=== PATIENT | male | born 1980 | race Two or more races ===

== ENCOUNTER 2016-12-30 21:34 | Emergency (ER) | payer OTHER ==
[~2016-12-30] VITALS: Ht 180.3 cm; Wt 76.7 kg
[~2016-12-30 21:34] MED LIST: BENTYL20 MG PO; COLACE50 MG PO; MOBIC7.5 MG PO; MOTRIN400 MG PO
[2016-12-30 22:17] LABS: HEMATOCRIT 45.8 % (38.0-50.0); MCHC 35.2 G/DL (30.0-36.0); MCV 85.4 FL (86-99); PLATELET COUNT 303 K/uL (156-360); RBC DIS.WIDTH-CV 12.4 % (11.8-14.6); RBC DIS.WIDTH-SD 38.1 % (39-53); RED BLOOD COUNT 5.36 M/uL (4.00-5.50); WHITE BLOOD COUNT 13.2 K/uL (4.1-10.2)
[2016-12-30 22:25] LABS: CHLORIDE 107 mEq/L (99-109); POTASSIUM 4.1 mEq/L (3.7-5.4); SODIUM 140 mEq/L (136-147)
[2016-12-30 22:27] LABS: GLUCOSE 89 mg/dL (70-99)
[2016-12-30 22:28] LABS: ANION GAP 9 MEQ/L (2-14)
[2016-12-30 22:31] LABS: GFR ESTIMATE (CALCULATED) > 59 mL/min/
[2016-12-30 22:32] LABS: UREA NITROGEN (BUN) 11 mg/dL (9-23)
[2016-12-30 22:39] LABS: TROP-I INTERPRETATION NEGATIVE; TROPONIN-I < 0.01 ng/mL (0.0-0.30)
[2016-12-30 23:09] LABS: D-DIMER ELISA 0.17 mg/L FEU (< 0.57)
[2016-12-30 23:54] VITALS: BP 132/102
== END 2016-12-31 00:07 | disposition home or self-care (01) ==
LOC: EME 21:34
PROVIDERS: Emergency Medicine
DX: R07.89 Other chest pain (principal); F17.200 Nicotine dependence, unspecified, uncomplicated
CPT/HCPCS: 71020; 80048; 84484; 85027; 85379; 93005; 99281; 99285